=== PATIENT | male | born 1930 | race Caucasian/White ===

== ENCOUNTER 2016-11-15 07:25 | Day surgery (SDC) | payer OTHER, BC ==
[2016-11-15] VITALS (11 sets, daily range): BP systolic 111–147; BP diastolic 59–86; PULSE 65–81; TEMP 36.3–36.6; O2SAT 93–98; Ht 180.3 cm; Wt 85.0 kg
[~2016-11-15] VITALS: Ht 180.3 cm; Wt 85.0 kg
[2016-11-15] MEDS ORDERED: FLM4 PO (08:52)
[2016-11-15] MEDS ORDERED: SIMV20TA2 PO (08:52)
[2016-11-15] MEDS ORDERED: HYDR-5688 PO (08:52)
[2016-11-15] MEDS ORDERED: OMEG10007 PO (08:52)
[2016-11-15] MEDS ORDERED: CALC-354 PO (08:52)
[2016-11-15] MEDS ORDERED: MULT-506 PO (08:52)
[2016-11-15] MEDS ORDERED: CLB/200 PO (08:52)
[2016-11-15] MEDS ORDERED: GABA-113 PO (08:52)
[2016-11-15] MEDS ORDERED: ASPI-232 PO (08:52)
[2016-11-15 09:11] LABS: PARTIAL THROMBOPLASTIN RATIO 1.1; PROTHROMBIN TIME (PATIENT) 10.7 SECONDS (9.0-12.0)
[2016-11-15 09:20] LABS: CREATININE 1.1 mg/dl (0.60-1.40)
--- NOTE | 2016-11-15 11:00 | DIAGNOSTIC IMAGING REPORT ---
LUMBAR SPINE CT MYELOGRAM HISTORY: Back pain. POST MYELOGRAM TECHNIQUE: Multiaxial CT images of the lumbar spine performed following the intrathecal injection of contrast. COMPARISON: None. FINDINGS: For the purpose of the report the L5-S1 disc space will be located on axial image 300 of 384. Minimal levoscoliosis. There is 2 mm of right or the cysts of L3 on L4. Severe disc space narrowing at L2-L3 and moderate to space narrowing at L3-L4 with associated vacuum phenomenon. There is endplate sclerosis, endplate osteophytes, and cystic change due to the long-standing degenerative change. There is mild disc space narrowing at L4-L5. The conus terminates at the L1 level. Posterior decompression from L2 through L4. Severe facet degenerative changes at L4-L5 and L5-S1. No acute fractures. Partially visualized right hip prosthesis. Paraspinal soft tissues are unremarkable. L1-L2: Tiny broad-based posterior disc bulge mild facet hypertrophy resulting in minimal central canal and minimal bilateral neural foraminal narrowing. L2-L3: Small broad-based posterior disc osteophyte complex. No significant central canal narrowing due to the decompression. There is moderate bilateral neural foraminal narrowing due to the facet hypertrophy. L3-L4: No significant central canal narrowing due to the posterior decompression. Moderate bilateral neural foraminal narrowing due to the facet hypertrophy. L4-L5: Broad-based posterior disc osteophyte, with focal areas of calcification within the disc bulge. Despite the posterior decompression there is moderate to severe central canal narrowing. The central canal measures 9 mm in diameter. In addition, there is an abrupt change within the appearance of the cauda equina at this location. The nerve roots are thickened and hypodense suggestive of edema. Therefore, this is consistent with an arachnoiditis. This continues inferiorly into the sacrum. Severe bilateral neural foraminal narrowing. L5-S1: Small broad-based posterior disc bulge with ligamentum and facet hypertrophy resulting and moderate to severe central canal narrowing. There is also moderate bilateral neural foraminal narrowing. IMPRESSION: 1. Posterior decompression from L2 through L4. 2. Broad-based posterior disc osteophyte at L4-L5, with focal areas of calcification within the posterior disc bulge. Despite the posterior decompression there is moderate to severe central canal narrowing. In addition, there is an abrupt change within the appearance of the cauda equina at this location. The nerve roots are thickened and hypodense suggestive of edema. Therefore, this is consistent with an arachnoiditis. This continues inferiorly into the sacrum. 3. Moderate to severe central canal narrowing at L5-S1. 4. Additional degenerative changes as described above. Electronically signed by: Alberto Corona M.D. 11/15/2016 10:58 AM Dictated Date/Time: 11/15/2016 10:36 AM
--- NOTE | 2016-11-15 11:14 | Discharge Instructions ---
Discharge Instructions Procedure Procedure Date: Nov 15, 2016. Reason for visit: Lumbar Foraminal Stenosis. Discharge Discharge Date: Nov 15, 2016. Discharge Diagnosis: same Instructions Activity Recommendations: No limitations Return to School/Work: no limitations Recommended Home Diet: Resume Previous Diet Provider Instructions: ACTIVITY RECOMMENDATIONS: * Rest today. * Resume regular activity in one day. MEDICATIONS: * May take Tylenol or Ibuprofen as needed for pain. DIET: * Resume previous diet. SPECIAL CARE INSTRUCTIONS: Call your doctor if: * Temperature above 101 degrees F. * Pain not relieved by pain medicine ordered. * Increased drainage or redness from incision. * Notify your doctor with any questions or concerns. Call your doctor or go to the nearest Emergency Department if you experience: * Increased chest pain or shortness of breath. FOLLOW UP VISIT: Follow-up with Referring Physician as scheduled. Allergies Coded Allergies: No Known Allergies (Unverified , 11/15/16) Glory Briceño Recommendations: Call your doctor if: * Temperature above 101 degrees * Pain not relieved by pain medicine ordered * There is increased drainage or redness from any incision * You have any unanswered questions or concerns. Your Doctors Instructions noted above were prepared by provider Alberto Corona. Patient Signature Section: Patient Instructions Signature Page [place] Patient (or Guardian) Signature/Date: I have read and understand the instructions given to me by my caregivers. Caregiver/RN/Doctor Signature/Date: The above-named patient and/or guardian has received patient instructions on this date. + Original Patient Signature Page (only) stays with chart. Please make copy for patient.
[2016-11-15] MEDS ORDERED: ACETAMINOPHEN 500 MG TAB PO PRN (11:15)
--- NOTE | 2016-11-15 12:54 | DIAGNOSTIC IMAGING REPORT ---
FLUOROSCOPICALLY GUIDED LUMBAR MYELOGRAM CLINICAL HISTORY: lumbar foraminal stenosis FLUOROSCOPY TIME: 0.8 minutes. 2 fluoroscopic spot images submitted. PROCEDURE: The procedure, risks and benefits were discussed with the patient including the risk of spinal headache, bleeding and infection. The patient agreed to the procedure and informed written consent was obtained. The procedure was performed by Dr. Corona following a timeout. The left L1-L2 interlaminar space was targeted. Skin overlying the space was prepped and draped in the usual sterile fashion and local anesthesia was achieved with 1% lidocaine. Under intermittent fluoroscopic guidance, a 20-gauge x 3 1/2 in. Sprotte needle was inserted into the thecal sac. A total of 12cc of Isovue-M 200 was injected into the thecal sac. The patient tolerated the procedure well. There were no immediate complications.. IMPRESSION: Successful fluoroscopic guided lumbar myelogram. No immediate complications. Electronically signed by: Alberto Corona M.D. 11/15/2016 12:53 PM Dictated Date/Time: 11/15/2016 12:52 PM
== END 2016-11-15 14:30 | disposition home or self-care (01) ==
LOC: C.ACU 07:25
PROVIDERS: ATTEND Orthopaedic Surgery Orthopaedic Surgery of the Spine
DX: M99.83 Other biomechanical lesions of lumbar region (principal)